=== PATIENT | female | born 2000 | race Caucasian/White ===

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

== ENCOUNTER 2022-03-09 21:23 | Emergency (ER) | payer BC, OTHER ==
[~2022-03-09] VITALS: Ht 157.5 cm; Wt 62.7 kg
[2022-03-09 21:23] VITALS: BP 120/83
[~2022-03-09 21:23] MED LIST: ACET1TAB55 PO; CYCL-707 PO; MEDR150I10 IM; NAPR-885 PO; PRED10TA2 PO; TRAM50TA2 PO
[2022-03-09] MEDS ORDERED: LUPR22.5 IM (21:31)
== END 2022-03-09 22:28 | disposition left against medical advice (07) ==
LOC: M ED 21:23
DX: Z53.21 Procedure and treatment not carried out due to patient leaving prior to being seen by health care provider (principal)